=== PATIENT | male | born 1940 | race Caucasian/White ===

== ENCOUNTER 2022-09-16 23:52 | Emergency (ER) | payer MEDICARE, OTHER ==
[2022-09-17] MEDS: Sodium Chloride 0.9% 10 ML Syringe FLUSH PRN (00:20)
[2022-09-17] MEDS: Ondansetron 4 MG/2 ML SDV IVPUSH ONE (00:31)
[2022-09-17] MEDS: Sodium Chloride 0.9% 1,000 ML IV SCH (00:38)
[2022-09-17 00:45] LABS: ANION GAP 14.5 mmol/L (5-15); CHLORIDE,CL 101 mmol/L (98-107); SODIUM,NA 139 mmol/L (136-145)
[2022-09-17 00:47] LABS: ESTIMATED GFR 46 mL/min (>=60)
[2022-09-17] MEDS: HYDROmorphone 1 MG/ML Syringe IVPUSH ONE ×2 (00:47→02:47)
[2022-09-17] MEDS: Iopamidol 755 Mg/ML 100 ML Bottle IV ONE (01:12)
[2022-09-17] MEDS: Sodium Chloride 0.9% 100 ML IV SCH (01:12)
[2022-09-17] MEDS: Simethicone 80 MG Tab.Chew PO ONE (01:26)
== END 2022-09-17 03:26 | disposition left against medical advice (07) ==
LOC: KA.ED 23:52
DX: K63.89 Other specified diseases of intestine (principal); N28.9 Disorder of kidney and ureter, unspecified; Z88.8 Allergy status to other drugs, medicaments and biological substances; Z79.82 Long term (current) use of aspirin; Z79.02 Long term (current) use of antithrombotics/antiplatelets; Z79.899 Other long term (current) drug therapy
CPT/HCPCS: 36415; 51798; 74177; 80053; 81001; 83690; 85025; 96361; 96374; 96375; 96376; 99284-25; J1170; J2405; J3490; J7030; Q9967

== ENCOUNTER 2022-09-30 09:32 | Inpatient (IN) | payer MEDICARE ==
[2022-09-30] MEDS ORDERED: Magnesium Hydroxide 400 MG/5 ML Susp 30 ML Cup PO PRN (13:05)
[2022-09-30] MEDS ORDERED: Bisacodyl 10 MG Supp RECTAL PRN (14:51)
[2022-09-30] MEDS ORDERED: Acetaminophen 500 MG Tab PO PRN (14:51)
[2022-09-30] MEDS ORDERED: oxyCODONE 5 MG Tab PO PRN ×2 (14:51)
[2022-09-30] MEDS: Clotrimazole 10 MG Troche PO SCH ×2 (17:12→20:01)
[2022-09-30] MEDS: Carvedilol 6.25 MG Tab PO SCH (18:06)
[2022-10-01] MEDS: Omeprazole 20 MG Cap.CR PO SCH ×2 (06:01→06:38)
[2022-10-01] MEDS: amLODIPine 5 MG Tab PO SCH (08:21)
[2022-10-01] MEDS: Clotrimazole 10 MG Troche PO SCH ×5 (08:21→19:49)
[2022-10-01] MEDS: Losartan 50 MG Tab PO SCH (08:21)
[2022-10-01] MEDS: Carvedilol 6.25 MG Tab PO SCH ×2 (08:21→17:11)
[2022-10-01] MEDS: Clopidogrel 75 MG Tab PO SCH (08:21)
[2022-10-01] MEDS: atorvaSTATin 40 MG Tab PO SCH (08:21)
[2022-10-01] MEDS: Aspirin 81 MG Tab.EC PO SCH (08:21)
[2022-10-01] MEDS ORDERED: Melatonin 3 MG Tab PO PRN (13:04)
[2022-10-02] MEDS: Omeprazole 20 MG Cap.CR PO SCH ×2 (06:08→06:31)
[2022-10-02] MEDS: Clotrimazole 10 MG Troche PO SCH ×3 (08:03→13:24)
[2022-10-02] MEDS: Aspirin 81 MG Tab.EC PO SCH (08:03)
[2022-10-02] MEDS: atorvaSTATin 40 MG Tab PO SCH (08:03)
[2022-10-02] MEDS: Clopidogrel 75 MG Tab PO SCH (08:03)
[2022-10-02] MEDS: Carvedilol 6.25 MG Tab PO SCH (08:04)
[2022-10-02] MEDS: Losartan 50 MG Tab PO SCH (08:04)
[2022-10-02] MEDS: amLODIPine 5 MG Tab PO SCH (08:04)
== END 2022-10-02 14:05 | disposition home or self-care (01) | DRG 948 ==
LOC: KA.MS 12:17
PROVIDERS: ADMIT Student in an Organized Health Care Education/Training Program; ATTEND Student in an Organized Health Care Education/Training Program
DX: R53.81 Other malaise (principal); K55.1 Chronic vascular disorders of intestine; I13.0 Hypertensive heart and chronic kidney disease with heart failure and stage 1 through stage 4 chronic kidney disease, or unspecified chronic kidney disease; B37.0 Candidal stomatitis; H54.7 Unspecified visual loss; I50.9 Heart failure, unspecified; E78.00 Pure hypercholesterolemia, unspecified; N18.32 Chronic kidney disease, stage 3b; E66.9 Obesity, unspecified; I25.10 Atherosclerotic heart disease of native coronary artery without angina pectoris; N40.0 Benign prostatic hyperplasia without lower urinary tract symptoms; E78.5 Hyperlipidemia, unspecified; Z79.82 Long term (current) use of aspirin; Z79.899 Other long term (current) drug therapy; Z79.01 Long term (current) use of anticoagulants; Z86.16 Personal history of COVID-19; Z68.32 Body mass index [BMI] 32.0-32.9, adult
CPT/HCPCS: 97110-GP; 97161-GP; 97535-GO; A9270-GY

== ENCOUNTER 2022-10-03 01:55 | Emergency (ER) | payer MEDICARE ==
[2022-10-03] MEDS ORDERED: Sodium Chloride 0.9% 10 ML Syringe FLUSH PRN (02:10)
[2022-10-03 02:57] LABS: ANION GAP 9.7 mmol/L (5-15)
[2022-10-03] MEDS ORDERED: Sodium Chloride 0.9% 1,000 ML IV ONE (03:32)
[2022-10-03] MEDS ORDERED: Iopamidol 755 Mg/ML 75 ML Bottle IVPUSH ONE (04:26)
[2022-10-03] MEDS ORDERED: Sodium Chloride 0.9% 100 ML IV SCH (04:30)
[2022-10-03] MEDS ORDERED: Cefdinir 300 MG Cap PO ONE (05:55)
== END 2022-10-03 06:15 | disposition home or self-care (01) ==
LOC: KA.ED 01:55
DX: R06.02 Shortness of breath (principal); R05.9 Cough, unspecified; I25.10 Atherosclerotic heart disease of native coronary artery without angina pectoris; E78.00 Pure hypercholesterolemia, unspecified; I13.0 Hypertensive heart and chronic kidney disease with heart failure and stage 1 through stage 4 chronic kidney disease, or unspecified chronic kidney disease; N18.32 Chronic kidney disease, stage 3b; I50.9 Heart failure, unspecified; E66.9 Obesity, unspecified; Z68.30 Body mass index [BMI] 30.0-30.9, adult; Z88.8 Allergy status to other drugs, medicaments and biological substances; Z79.02 Long term (current) use of antithrombotics/antiplatelets; Z79.899 Other long term (current) drug therapy; Z79.82 Long term (current) use of aspirin
CPT/HCPCS: 36415; 71046; 71275; 80053; 83605; 83880; 84484; 85025; 85379; 87040; 93010; 96360; 96361; 99285; 99285-25; A9270-GY; J3490; J7030; Q9967

== ENCOUNTER 2024-09-04 22:38 | Emergency (ER) | payer MEDICARE ==
[2024-09-04] MEDS ORDERED: Sodium Chloride 0.9% 10 ML Syringe FLUSH PRN (23:31)
[2024-09-05 00:07] LABS: BASOPHILS ABSOLUTE AUTO 0.02 10^3/uL (0.00-0.10); BASOPHILS PERCENT AUTO 0.2 % (0.0-1.0); EOSINOPHILS ABSOLUTE AUTO 0.24 10^3/uL (0.10-0.30); EOSINOPHILS PERCENT AUTO 2.3 % (1.0-3.0); HEMATOCRIT 46.9 % (40.0-52.0); HEMOGLOBIN 15.7 g/dL (13.0-17.0); IMMATURE GRAN ABSOLUTE AUTO 0.02 10^3/uL (0.00-0.50); IMMATURE GRAN PERCENT AUTO 0.2 % (0.0-5.0); LYMPHOCYTES ABSOLUTE AUTO 2.43 10^3/uL (1.00-4.00); LYMPHOCYTES PERCENT AUTO 23.4 % (20.0-40.0); MEAN CORPUSCULAR HEMOGLOBIN 30.8 pg (27.0-31.0); MEAN CORPUSCULAR HGB CONC 33.5 g/dL (32.0-36.0); MEAN CORPUSCULAR VOLUME 92.1 fL (82.0-92.0); MEAN PLATELET VOLUME 9.6 fL (7.4-10.4); MONOCYTES ABSOLUTE AUTO 0.99 10^3/uL (0.10-0.80); MONOCYTES PERCENT AUTO 9.5 % (2.0-8.0); NEUTROPHILS ABSOLUTE AUTO 6.68 10^3/uL (2.50-7.00); NEUTROPHILS PERCENT AUTO 64.4 % (50.0-70.0); PLATELET COUNT,PLT 248 10^3/uL (150-400); RED BLOOD CELL COUNT 5.09 10^6/uL (4.50-6.00); WHITE BLOOD CELL COUNT,WBC 10.38 10^3/uL (5.00-10.00)
[2024-09-05] MEDS: Tenecteplase 50 MG Kit IVPUSH ONE (00:18)
[2024-09-05 00:22] LABS: PROTHROMBIN TIME 10.3 SEC (9.3-12.2); PTT,PARTIAL THROMBOPLSTIN TIME 25.7 SEC (23.3-34.9)
[2024-09-05 00:26] LABS: ALBUMIN 3.63 g/dL (3.40-5.00); ANION GAP 14.5 mmol/L (5-15); BILIRUBIN TOTAL 0.4 mg/dL (0.2-1.0); CARBON DIOXIDE,CO2 25.7 mmol/L (21.0-32.0); CREATININE 1.53 mg/dL (0.51-1.17); EST CRCL DRUG DOSING (CG) 37.22 mL/min; POTASSIUM,K 3.2 mmol/L (3.5-5.1); PROTEIN TOTAL,TP 7.4 g/dL (6.4-8.2)
[2024-09-05] MEDS: Labetalol 100 MG/20 ML MDV IVPUSH ONE (00:27)
[2024-09-05 00:47] VITALS: PULSE 45
[2024-09-05 00:57] VITALS: BP 171/76
== END 2024-09-05 01:07 ==
LOC: KA.ED 22:38
DX: I63.9 Cerebral infarction, unspecified (principal); H53.453 Other localized visual field defect, bilateral; I13.0 Hypertensive heart and chronic kidney disease with heart failure and stage 1 through stage 4 chronic kidney disease, or unspecified chronic kidney disease; N18.32 Chronic kidney disease, stage 3b; I50.9 Heart failure, unspecified; Z79.82 Long term (current) use of aspirin; Z79.899 Other long term (current) drug therapy
CPT/HCPCS: 36415; 37195; 70450; 80053; 82947; 84484; 85025; 85610; 85730; 93010; 96374; 99284; 99285-25; J1920; J3101

== ENCOUNTER 2025-07-05 23:14 | Inpatient (IN) | payer MEDICARE ==
[2025-07-05] MEDS: Sodium Chloride 0.9% 10 ML Syringe FLUSH PRN (23:33)
[2025-07-05 23:53] LABS: APPEARANCE,URINE CLEAR (CLEAR); GLUCOSE,URINE 100 mg/dL (NEGATIVE); OCCULT BLOOD,URINE TRACE-INTACT (NEGATIVE)
[2025-07-05 23:53] LABS: BASOPHILS ABSOLUTE AUTO 0.01 10^3/uL (0.00-0.10); BASOPHILS PERCENT AUTO 0.1 % (0.0-1.0); EOSINOPHILS ABSOLUTE AUTO 0.17 10^3/uL (0.10-0.30); EOSINOPHILS PERCENT AUTO 1.6 % (1.0-3.0); IMMATURE GRAN ABSOLUTE AUTO 0.03 10^3/uL (0.00-0.04); IMMATURE GRAN PERCENT AUTO 0.3 % (0.0-0.4); LYMPHOCYTES ABSOLUTE AUTO 1.19 10^3/uL (1.00-4.00); LYMPHOCYTES PERCENT AUTO 10.9 % (20.0-40.0); MEAN PLATELET VOLUME 9.3 fL (7.4-10.4); MONOCYTES ABSOLUTE AUTO 0.67 10^3/uL (0.10-0.80); MONOCYTES PERCENT AUTO 6.2 % (2.0-8.0); NEUTROPHILS ABSOLUTE AUTO 8.81 10^3/uL (2.50-7.00); NEUTROPHILS PERCENT AUTO 80.9 % (50.0-70.0); PLATELET COUNT,PLT 208 10^3/uL (150-400); RED BLOOD CELL COUNT 4.98 10^6/uL (4.50-6.00); RED CELL DISTRIBUTION WIDTH 13.3 % (11.5-14.5); WHITE BLOOD CELL COUNT,WBC 10.88 10^3/uL (5.00-10.00)
[2025-07-05 23:54] LABS: EPITHELIAL CELLS,URINE OCCASIONAL /LPF
[2025-07-06 00:03] LABS: ALANINE AMINOTRANSFERASE,ALT 261 U/L (14-63); ASPARTATE AMNIOTRANSFERASE,AST 352 U/L (15-37); BILIRUBIN TOTAL 1.4 mg/dL (0.2-1.0); BLOOD UREA NITROGEN,BUN 28 mg/dL (7-18); CARBON DIOXIDE,CO2 29.9 mmol/L (21.0-32.0); CHLORIDE,CL 101 mmol/L (98-107); CREATININE 2.03 mg/dL (0.51-1.17); ESTIMATED GFR 32 mL/min (>=60); GLUCOSE RANDOM 131 mg/dL (70-140); POTASSIUM,K 3.8 mmol/L (3.5-5.1); PROTEIN TOTAL,TP 7.8 g/dL (6.4-8.2); SODIUM,NA 142 mmol/L (136-145)
[2025-07-06] MEDS: Iopamidol 755 Mg/ML 100 ML Bottle IV ONE (00:33)
[2025-07-06] MEDS: Ondansetron 4 MG/2 ML SDV IVPUSH ONE (00:52)
[2025-07-06] MEDS ORDERED: Ondansetron 4 MG/2 ML SDV IV PRN (04:06)
[2025-07-06] MEDS: Heparin Sodium 5,000 Units/ML Vial SUBCUT SCH (05:35)
[2025-07-06] MEDS: Lactated Ringers 1,000 ML IV SCH (05:39)
[2025-07-06 08:09] LABS: BASOPHILS ABSOLUTE AUTO 0.01 10^3/uL (0.00-0.10); BASOPHILS PERCENT AUTO 0.1 % (0.0-1.0); EOSINOPHILS ABSOLUTE AUTO 0.00 10^3/uL (0.10-0.30); EOSINOPHILS PERCENT AUTO 0.0 % (1.0-3.0); IMMATURE GRAN ABSOLUTE AUTO 0.03 10^3/uL (0.00-0.04); IMMATURE GRAN PERCENT AUTO 0.2 % (0.0-0.4); LYMPHOCYTES ABSOLUTE AUTO 0.91 10^3/uL (1.00-4.00); LYMPHOCYTES PERCENT AUTO 6.9 % (20.0-40.0); MEAN PLATELET VOLUME 9.2 fL (7.4-10.4); MONOCYTES ABSOLUTE AUTO 1.21 10^3/uL (0.10-0.80); MONOCYTES PERCENT AUTO 9.1 % (2.0-8.0); NEUTROPHILS ABSOLUTE AUTO 11.09 10^3/uL (2.50-7.00); NEUTROPHILS PERCENT AUTO 83.7 % (50.0-70.0); PLATELET COUNT,PLT 169 10^3/uL (150-400); RED BLOOD CELL COUNT 4.24 10^6/uL (4.50-6.00); RED CELL DISTRIBUTION WIDTH 13.5 % (11.5-14.5); WHITE BLOOD CELL COUNT,WBC 13.25 10^3/uL (5.00-10.00)
[2025-07-06 08:29] LABS: ALANINE AMINOTRANSFERASE,ALT 660.0 U/L (14-63); ASPARTATE AMNIOTRANSFERASE,AST 604.0 U/L (15-37); BILIRUBIN TOTAL 2.8 mg/dL (0.2-1.0); BLOOD UREA NITROGEN,BUN 29.0 mg/dL (7-18); CARBON DIOXIDE,CO2 28.2 mmol/L (21.0-32.0); CHLORIDE,CL 104.0 mmol/L (98-107); CREATININE 2.24 mg/dL (0.51-1.17); EST CRCL DRUG DOSING (CG) 24.17 mL/min; GLUCOSE RANDOM 127.0 mg/dL (70-140); POTASSIUM,K 4.2 mmol/L (3.5-5.1); PROTEIN TOTAL,TP 6.4 g/dL (6.4-8.2); SODIUM,NA 142.0 mmol/L (136-145)
[2025-07-06 08:36] LABS: ESTIMATED GFR 28.0 mL/min (>=60)
[2025-07-07 07:18] LABS: BASOPHILS ABSOLUTE AUTO 0.02 10^3/uL (0.00-0.10); BASOPHILS PERCENT AUTO 0.2 % (0.0-1.0); EOSINOPHILS ABSOLUTE AUTO 0.09 10^3/uL (0.10-0.30); EOSINOPHILS PERCENT AUTO 1.1 % (1.0-3.0); IMMATURE GRAN ABSOLUTE AUTO 0.02 10^3/uL (0.00-0.04); IMMATURE GRAN PERCENT AUTO 0.2 % (0.0-0.4); LYMPHOCYTES ABSOLUTE AUTO 0.84 10^3/uL (1.00-4.00); LYMPHOCYTES PERCENT AUTO 10.0 % (20.0-40.0); MEAN PLATELET VOLUME 9.5 fL (7.4-10.4); MONOCYTES ABSOLUTE AUTO 0.65 10^3/uL (0.10-0.80); MONOCYTES PERCENT AUTO 7.7 % (2.0-8.0); NEUTROPHILS ABSOLUTE AUTO 6.79 10^3/uL (2.50-7.00); NEUTROPHILS PERCENT AUTO 80.8 % (50.0-70.0); PLATELET COUNT,PLT 144 10^3/uL (150-400); RED BLOOD CELL COUNT 4.29 10^6/uL (4.50-6.00); RED CELL DISTRIBUTION WIDTH 14.0 % (11.5-14.5); WHITE BLOOD CELL COUNT,WBC 8.41 10^3/uL (5.00-10.00)
[2025-07-07 07:38] LABS: ALANINE AMINOTRANSFERASE,ALT 425.0 U/L (14-63); ASPARTATE AMNIOTRANSFERASE,AST 191.0 U/L (15-37); BILIRUBIN TOTAL 3.8 mg/dL (0.2-1.0); BLOOD UREA NITROGEN,BUN 28.0 mg/dL (7-18); CARBON DIOXIDE,CO2 27.5 mmol/L (21.0-32.0); CHLORIDE,CL 107.0 mmol/L (98-107); CREATININE 2.42 mg/dL (0.51-1.17); EST CRCL DRUG DOSING (CG) 22.38 mL/min; GLUCOSE RANDOM 125.0 mg/dL (70-140); POTASSIUM,K 4.0 mmol/L (3.5-5.1); PROTEIN TOTAL,TP 6.6 g/dL (6.4-8.2); SODIUM,NA 141.0 mmol/L (136-145)
[2025-07-07 07:46] LABS: ESTIMATED GFR 26.0 mL/min (>=60)
[2025-07-07] MEDS: Non-Formulary Medication 1 Each (Dapagliflozin Propanediol [Farxiga] 5 MG Tablet) PO SCH (10:29)
[2025-07-07 10:34] LABS: INR 1.1 (0.9-1.1)
== END 2025-07-07 13:01 | DRG 445 ==
LOC: KA.ED 23:14 → KA.MS 07-06 03:07
PROVIDERS: ADMIT Nurse Practitioner; ATTEND Family Medicine
DX: K80.50 Calculus of bile duct without cholangitis or cholecystitis without obstruction (principal); R74.8 Abnormal levels of other serum enzymes; N19 Unspecified kidney failure; I11.0 Hypertensive heart disease with heart failure; I50.9 Heart failure, unspecified; K80.51 Calculus of bile duct without cholangitis or cholecystitis with obstruction; I13.0 Hypertensive heart and chronic kidney disease with heart failure and stage 1 through stage 4 chronic kidney disease, or unspecified chronic kidney disease; I50.32 Chronic diastolic (congestive) heart failure; H54.7 Unspecified visual loss; I25.10 Atherosclerotic heart disease of native coronary artery without angina pectoris; E78.00 Pure hypercholesterolemia, unspecified; K52.9 Noninfective gastroenteritis and colitis, unspecified; K21.9 Gastro-esophageal reflux disease without esophagitis; Z68.33 Body mass index [BMI] 33.0-33.9, adult; N40.0 Benign prostatic hyperplasia without lower urinary tract symptoms; N18.32 Chronic kidney disease, stage 3b; E66.9 Obesity, unspecified; I73.9 Peripheral vascular disease, unspecified; N32.89 Other specified disorders of bladder; Z88.8 Allergy status to other drugs, medicaments and biological substances; Z79.02 Long term (current) use of antithrombotics/antiplatelets; Z79.899 Other long term (current) drug therapy; Z86.0100 Personal history of colon polyps, unspecified; Z86.73 Personal history of transient ischemic attack (TIA), and cerebral infarction without residual deficits; Z86.16 Personal history of COVID-19; Z98.49 Cataract extraction status, unspecified eye; Z98.890 Other specified postprocedural states; Z86.718 Personal history of other venous thrombosis and embolism; Z87.891 Personal history of nicotine dependence
CPT/HCPCS: 36415; 74177; 80053; 81001; 82150; 83605; 83690; 84484; 85025; 85610; 87040; 96361; 96374; 96375; 99285-25; A9270-GY; J1644; J2270; J2405; J2543; J7030; J7120; Q3014; Q9967